=== PATIENT | female | born 1955 | race Caucasian/White ===

== ENCOUNTER → 2017-10-14 | Outpatient (CLI) | payer BC ==
[~2017-10-14] MED LIST: ALEVE 220MG220 MG PO; ASPIRIN 32325 MG/TAB PO; CLARITIN; CLARITIN 1010 MG/TAB PO; COMBIVENT INH14.7 GM; COMBIVENT INH14.7 GM IH; DOXYCYCLINE 10100 MG PO; DULCOLAX TAB5 MG PO; ESTRACE0.5 MG PO; FLONASE NASAL S16 GM NS; FORADIL IH; HORMONES; IRON TABLETS325 MG PO; KLONOPIN 0.5MG0.5 MG PO; KLONOPIN 1MG1 MG PO; LEVSIN 0.10.125 MG/T PO; LEVSIN0.125 M1 PO; MULTI-VITAMIN W1 TA1; NORCO 325 MG-7.1 TAB PO; NYSTATIN OR100 MU/ML; OSCAL 500 TAB500 MG PO; OXYCODONE H5 MG/5 ML PO; PEPCID 20MG TAB20 MG PO; PRILOSEC 20MG20 MG; PRILOSEC 20MG20 MG PO; RT ADVAIR 128 DISKUS; RT ADVAIR HFA 1112 G IH; SPIRIVA INH IH; ULTRAM 50MG TAB50 MG PO; VESICARE10 MG PO; WELLBUTRIN 100100 MG PO; WELLBUTRIN 75MG75 MG PO; WELLBUTRIN SR100 M1 PO; ZOFRAN 4MG T4 MG/TAB PO; ZOFRAN ODT4 MG PO; [UNRECOGNIZED DRUG - OTHER]
== END ==
LOC: MC.RAD 12:58
DX: N63.0 Unspecified lump in unspecified breast (principal); Z80.3 Family history of malignant neoplasm of breast

== ENCOUNTER → 2019-06-25 | Outpatient (CLI) | payer BC | LOC: MC.RAD 13:02 | DX: Z12.31 Encounter for screening mammogram for malignant neoplasm of breast (principal) ==

== ENCOUNTER → 2020-04-27 | Outpatient (CLI) | payer MEDICARE | LOC: MC.RAD 13:12 | DX: N63.0 Unspecified lump in unspecified breast (principal) | CPT/HCPCS: G0279 ==

== ENCOUNTER → 2020-08-07 | Outpatient (CLI) | payer MEDICARE | LOC: MC.RAD 13:15 | DX: Z12.31 Encounter for screening mammogram for malignant neoplasm of breast (principal) ==